=== PATIENT | male | born 1950 | race African-American/Black ===

== ENCOUNTER 2017-10-16 14:45 | Emergency (ER) | payer MEDICARE, MEDICAID ==
[~2017-10-16] VITALS: Ht 190.5 cm; Wt 85.0 kg
[2017-10-16] MEDS ORDERED: KETOROLAC 30MG/ML VIAL IV STA (17:02)
[2017-10-16] MEDS ORDERED: DEXAMETHASONE 4MG/ML 1ML VIAL IV ONE (17:15)
[2017-10-16 18:43] VITALS: BP 118/70
== END 2017-10-16 19:00 | disposition home or self-care (01) ==
LOC: ER 17:47
DX: M54.5 Low back pain (principal); R03.0 Elevated blood-pressure reading, without diagnosis of hypertension
CPT/HCPCS: 96374; 96375; 99284; J1100; J1885

== ENCOUNTER 2022-06-05 12:15 | Emergency (ER) | payer MEDICARE, MEDICAID ==
[~2022-06-05] VITALS: Ht 190.5 cm; Wt 93.0 kg
[2022-06-05] MEDS ORDERED: KETOROLAC 60MG/2ML VIAL IM STA (15:32)
[2022-06-05] MEDS ORDERED: LORAZEPAM 0.5MG TABLET PO ONE (15:45)
[2022-06-05 15:55] VITALS: BP 123/70
[2022-06-05] MEDS ORDERED: CYCL10TA21 MT (16:52)
[2022-06-05] MEDS ORDERED: IBUP-2029 MT (16:52)
== END 2022-06-05 17:28 | disposition home or self-care (01) ==
LOC: ER 12:15
DX: M54.50 Low back pain, unspecified (principal); Z88.0 Allergy status to penicillin
CPT/HCPCS: 71045; 93005; 96372; 99283; J1885

== ENCOUNTER 2025-03-25 10:08 | Inpatient (IN) | payer MEDICARE, MEDICAID ==
[2025-03-25] VITALS (33 sets, daily range): BP systolic 115–156; BP diastolic 70–100; PULSE 47–65; RESP 11–26; TEMP 36.5848–36.8; O2SAT 69–100
[~2025-03-25] VITALS: Ht 182.9 cm; Wt 81.2 kg
[~2025-03-25 10:08] MED LIST: CYCL10TA21 MT; IBUP-1455 MT
[2025-03-25 11:40] LABS: BASOPHILS % 0.4 % (0.0-2.0); EOSINOPHILS % 0.1 % (0.0-5.0); HEMATOCRIT. 41.2 % (42.0-52.0); HEMOGLOBIN. 14.2 g/dL (14.0-18.0); LYMPHOCYTES % 7.4 % (20.0-50.0); MEAN PLATELET VOLUME 8.2 fl (7.4-10.4); MONOCYTES % 3.7 % (2.0-8.0); NEUTROPHILS % 88.4 % (40.0-76.0); PLATELET 220 x1000/uL (130-400); RED BLOOD CELL COUNT 4.42 mill/uL (4.7-6.1); RED CELL DISTRIBUTION WIDTH 13.0 % (11.6-14.6)
[2025-03-25 11:55] LABS: CREATININE 1.3 mg/dL (0.6-1.3); UREA NITROGEN BLOOD 9 mg/dL (9-23)
[2025-03-25 11:56] LABS: TROPONIN I HIGH SENSITIVITY < 4 ng/L (3.0-53)
[2025-03-25] MEDS: ACETAMINOPHEN 325MG TABLET PO ONE (12:43)
[2025-03-25 14:22] LABS: INFLUENZA TYPE A Presumptive Negative (Pres. Neg.)
[2025-03-25 14:23] LABS: INFLUENZA TYPE B Presumptive Negative (Pres. Neg.)
[2025-03-25] MEDS: MORPHINE SULFATE 4 MG/ML INJ (FOR IV/IM USE) IV NR (14:51)
[2025-03-25] MEDS ORDERED: MORPHINE SULFATE 4 MG/ML INJ (FOR IV/IM USE) IV ONE (15:15)
[2025-03-25] MEDS ORDERED: ACETAMINOPHEN 325MG TABLET PO PRN (15:45)
[2025-03-25] MEDS ORDERED: LORAZEPAM 0.5MG TABLET PO PRN (15:45)
[2025-03-25] MEDS ORDERED: GUAIFENESIN 200MG/10ML SUGAR FREE UDC PO PRN (15:45)
[2025-03-25] MEDS ORDERED: DOCUSATE SODIUM 100MG CAPSULE PO PRN (15:45)
[2025-03-25] MEDS ORDERED: ONDANSETRON HCL 4MG/2ML INJ IV PRN (15:45)
[2025-03-25] MEDS ORDERED: IPRATROPIUM/ALBUTEROL 0.5-3(2.5)MG/3ML NEB HHN PRN (16:00)
[2025-03-25] MEDS ORDERED: NICARDIPINE 40MG/200ML PREMIX 200 ML IV PRN ×2 (16:00→18:00)
[2025-03-25 16:14] LABS: TROPONIN I HIGH SENSITIVITY < 4 ng/L (3.0-53)
[2025-03-25] MEDS ORDERED: IOHEXOL-350 100 ML BOTTLE ONE (16:29)
[2025-03-25] MEDS: POTASSIUM CHLORIDE 20MEQ TABLET SR PO NR (17:07)
[2025-03-25] MEDS: DEXT 5%/LACTATED RINGERS 1,000 ML IV SCH (17:07)
[2025-03-25] MEDS ORDERED: NALOXONE HCL 0.4MG/ML VIAL IV PRN (18:15)
[2025-03-25] MEDS: MORPHINE SULFATE 2 MG/ML INJ (NOT FOR IM USE) IV PRN (18:16)
[2025-03-25 22:06] LABS: INR 1.1
[2025-03-25 22:17] LABS: TRIGLYCERIDE 103 mg/dL (0-150)
[2025-03-25 22:18] LABS: LDL CHOLESTEROL 94 mg/dL (5-100)
[2025-03-25 22:19] LABS: PHOSPHORUS 4.0 mg/dL (2.5-4.9)
[2025-03-25 22:22] LABS: T4 FREE 1.28 ng/dL (0.89-1.76)
[2025-03-26] VITALS (66 sets, daily range): BP systolic 115–152; BP diastolic 70–114; PULSE 45–62; RESP 12–29; TEMP 36.1–37.3; O2SAT 96–100
[2025-03-26 05:51] LABS: CREATININE 1.2 mg/dL (0.6-1.3)
[2025-03-26 05:52] LABS: UREA NITROGEN BLOOD 9 mg/dL (9-23)
[2025-03-26 05:53] LABS: BASOPHILS % 0.2 % (0.0-2.0); EOSINOPHILS % 0.2 % (0.0-5.0); HEMATOCRIT. 39.9 % (42.0-52.0); HEMOGLOBIN. 13.6 g/dL (14.0-18.0); LYMPHOCYTES % 10.3 % (20.0-50.0); MEAN PLATELET VOLUME 8.2 fl (7.4-10.4); MONOCYTES % 6.9 % (2.0-8.0); NEUTROPHILS % 82.4 % (40.0-76.0); PLATELET 199 x1000/uL (130-400); RED BLOOD CELL COUNT 4.21 mill/uL (4.7-6.1); RED CELL DISTRIBUTION WIDTH 13.0 % (11.6-14.6)
[2025-03-26 06:57] LABS: CLARITY URINE CLEAR (CLEAR); COLOR URINE DARK YELLOW (YELLOW); GLUCOSE URINE NEGATIVE (NEGATIVE); KETONES URINE NEGATIVE (NEGATIVE); LEUKOCYTE ESTERASE URINE NEGATIVE (NEGATIVE); NITRITE URINE NEGATIVE (NEGATIVE); OCCULT BLOOD URINE 1+ (NEGATIVE); PH URINE 6.5 (4.5-8.0); PROTEIN URINE TRACE (NEGATIVE); SPECIFIC GRAVITY URINE 1.074 (1.005-1.030); UROBILINOGEN URINE 2.0 E.U./dL (0.2-1.0)
[2025-03-26 07:16] LABS: BACTERIA URINE NONE SEEN; SQUAMOUS EPITHELIAL CELL URINE 1+ /lpf (RARE/1+); WBC URINE NONE SEEN /hpf (0-2)
[2025-03-26 07:32] LABS: *AMPHETAMINES SCREEN URINE NEGATIVE (NEGATIVE)
[2025-03-26 07:33] LABS: *BARBITURATES SCREEN URINE NEGATIVE (NEGATIVE); *BENZODIAZEPINES SCREEN URINE NEGATIVE (NEGATIVE); *COCAINE SCREEN URINE NEGATIVE (NEGATIVE); METHADONE URINE SCREEN NEGATIVE (NEGATIVE)
[2025-03-26 07:34] LABS: CANNABINOID URINE SCREEN PRESUMPTIVE POSITIVE (NEGATIVE); ECSTASY MDMA SCREEN URINE NEGATIVE (NEGATIVE); OPIATES URINE SCREEN PRESUMPTIVE POSITIVE (NEGATIVE); PHENCYCLIDINE URINE SCREEN NEGATIVE (NEGATIVE)
[2025-03-26] MEDS: CLONIDINE 0.1MG TABLET PO PRN (10:20)
[2025-03-26] MEDS: ACETAMINOPHEN 325MG TABLET PO PRN (10:21)
[2025-03-26] MEDS: PANTOPRAZOLE SODIUM 40 MG/VIAL IV SCH (12:49)
[2025-03-26] MEDS ORDERED: LEVETIRACETAM 500MG in NACL 100ML PREMIX IV SCH (21:00)
[2025-03-26] MEDS: LEVETIRACETAM 500MG PREMIX 100ML IV SCH (21:58)
[2025-03-26] MEDS ORDERED: CLONIDINE 0.1MG TABLET PO PRN (23:30)
[2025-03-26] MEDS ORDERED: NALOXONE HCL 0.4MG/ML VIAL IV PRN (23:45)
[2025-03-26] MEDS: HYDROCODONE/ACETAMINOPHEN 5/325MG TABLET PO PRN (23:56)
[2025-03-27] VITALS: BP 118/63; PULSE 50; RESP 18; TEMP 37.1; O2SAT 96
[2025-03-27] MEDS ORDERED: HYDROMORPHONE HCL/PF 1MG/ML INJ IV NR (05:45)
[2025-03-27] MEDS: HYDROMORPHONE HCL/PF 2MG/ML INJ IV NR (06:56)
[2025-03-27 08:00] VITALS: BP 127/66; PULSE 65; RESP 20; TEMP 36.6; O2SAT 100
[2025-03-27] MEDS: GABAPENTIN 100MG CAPSULE PO SCH (08:17)
[2025-03-27] MEDS: HYDROMORPHONE HCL/PF 2MG/ML INJ IV PRN (08:23)
[2025-03-27 12:00] VITALS: BP 120/75; PULSE 61; RESP 18; TEMP 36.7; O2SAT 98
[2025-03-27 12:17] LABS: BASOPHILS % 0.6 % (0.0-2.0); EOSINOPHILS % 1.1 % (0.0-5.0); HEMATOCRIT. 42.0 % (42.0-52.0); HEMOGLOBIN. 14.2 g/dL (14.0-18.0); LYMPHOCYTES % 16.2 % (20.0-50.0); MEAN PLATELET VOLUME 8.4 fl (7.4-10.4); MONOCYTES % 7.1 % (2.0-8.0); NEUTROPHILS % 75.0 % (40.0-76.0); PLATELET 189 x1000/uL (130-400); RED BLOOD CELL COUNT 4.45 mill/uL (4.7-6.1); RED CELL DISTRIBUTION WIDTH 13.2 % (11.6-14.6)
[2025-03-27 12:50] LABS: CREATININE 1.2 mg/dL (0.6-1.3); UREA NITROGEN BLOOD 6 mg/dL (9-23)
[2025-03-27 16:00] VITALS: BP 128/73; PULSE 60; RESP 18; TEMP 36.3; O2SAT 97
[2025-03-27 20:00] VITALS: BP 116/68; PULSE 86; RESP 18; TEMP 36.4; O2SAT 97
[2025-03-27] MEDS: FAMOTIDINE 20MG TABLET PO SCH (21:12)
[2025-03-27] MEDS: ATORVASTATIN CALCIUM 40MG TABLET PO SCH (21:13)
[2025-03-28 04:00] VITALS: BP 136/69; PULSE 52; RESP 18; TEMP 36.4; O2SAT 97
[2025-03-28 06:33] LABS: BASOPHILS % 0.3 % (0.0-2.0); EOSINOPHILS % 1.9 % (0.0-5.0); HEMATOCRIT. 38.2 % (42.0-52.0); HEMOGLOBIN. 13.3 g/dL (14.0-18.0); LYMPHOCYTES % 13.2 % (20.0-50.0); MEAN PLATELET VOLUME 8.4 fl (7.4-10.4); MONOCYTES % 7.5 % (2.0-8.0); NEUTROPHILS % 77.1 % (40.0-76.0); PLATELET 199 x1000/uL (130-400); RED BLOOD CELL COUNT 4.08 mill/uL (4.7-6.1); RED CELL DISTRIBUTION WIDTH 13.1 % (11.6-14.6)
[2025-03-28 06:35] LABS: CREATININE 1.1 mg/dL (0.6-1.3)
[2025-03-28 06:36] LABS: LDL CHOLESTEROL 78 mg/dL (5-100); TRIGLYCERIDE 111 mg/dL (0-150); UREA NITROGEN BLOOD 7 mg/dL (9-23)
[2025-03-28 08:00] VITALS: BP 134/72; PULSE 57; RESP 19; TEMP 38.5; O2SAT 97
[2025-03-28] MEDS ORDERED: HYDROMORPHONE HCL/PF 2MG/ML INJ IV PRN (09:00)
[2025-03-28] MEDS: GABAPENTIN 400MG CAPSULE PO SCH (10:11)
[2025-03-28] MEDS ORDERED: TRAM50TA3 PO (11:21)
[2025-03-28] MEDS ORDERED: LIP40 PO (11:21)
[2025-03-28] MEDS ORDERED: GABA-534 PO (11:21)
[2025-03-28] MEDS ORDERED: TOPUD PO (11:21)
[2025-03-28] MEDS ORDERED: KEPP500 MT (11:21)
[2025-03-28 12:00] VITALS: BP 108/65; PULSE 54; RESP 18; TEMP 36.7; O2SAT 96
[2025-03-28] MEDS: TRAMADOL 50MG TABLET PO NR (12:17)
[2025-03-28 16:00] VITALS: BP 124/79; PULSE 56; RESP 16; TEMP 37.5; O2SAT 97
[2025-03-28] MEDS ORDERED: TRAMADOL 50MG TABLET PO PRN (16:00)
[2025-03-28 16:15] VITALS: BP 124/79; PULSE 61; RESP 17; TEMP 99.5
== END 2025-03-28 18:15 | disposition home or self-care (01) | DRG 64 ==
LOC: ER 10:40 → MICUSO 14:58 → EDBEDREQTM 15:00 → EDBEDREQ 15:00 → ENRESERV 15:07 → 8WST 03-26 19:03
PROVIDERS: ADMIT Hospitalist; ATTEND Hospitalist
DX: I61.5 Nontraumatic intracerebral hemorrhage, intraventricular (principal); G93.41 Metabolic encephalopathy; I60.9 Nontraumatic subarachnoid hemorrhage, unspecified; D64.9 Anemia, unspecified; E87.6 Hypokalemia; Z20.822 Contact with and (suspected) exposure to COVID-19; R73.9 Hyperglycemia, unspecified; M54.2 Cervicalgia; D72.829 Elevated white blood cell count, unspecified; N40.0 Benign prostatic hyperplasia without lower urinary tract symptoms; Z88.0 Allergy status to penicillin; Z91.81 History of falling
CPT/HCPCS: 36415; 70496; 70498; 70551; 71045; 80048; 80061; 80305; 81003; 82550; 83036; 83735; 83880; 84100; 84153; 84439; 84443; 84484; 85025; 87426; 87804; 92610; 93005; 93970; 96374; 97162; 97165; 99291; J1171; J1953; J2270; J2470; Q9967